=== PATIENT | female | born 1950 | race Caucasian/White ===

== ENCOUNTER 2021-07-23 01:38 | Emergency (ER) | payer MEDICARE, SELFPAY ==
[2021-07-23 01:37] VITALS: BP 147/65; PULSE 81; RESP 18; TEMP 36.9; O2SAT 99
--- NOTE | 2021-07-23 01:37 | PC.NURSE ---
PT denies chest pain, sob, or any other discomforts.
--- NOTE | 2021-07-23 01:45 | ECG_ITS ---
Measurements Intervals [place] Rate: 81 P: 41 MS: 153 QRS: 43 QRSD: 82 T: 30 QT: 302 QTc: 351 Interpretive Statements SINUS RHYTHM NONSPECIFIC T-WAVE ABNORMALITY NO PREVIOUS ECG AVAILABLE FOR COMPARISON Electronically Signed On 07-23-2021 13:43:45 CDT by Lisa Ponce M.D.
--- NOTE | 2021-07-23 01:56 | ED.RECABL ---
HPI - Recheck/Abnormal Lab/Rx General Chief Complaint: Recheck/Abnormal Lab/Rx Stated Complaint: LOW POTASSIUM Time Seen by Provider: 07/23/21 01:41 Source: patient and EMS Mode of arrival: EMS Limitations: no limitations History of Present Illness HPI narrative: Pt sent in from local [place] for potassium of 2.0 on outpatient labs. Pt has a history of hypokalemia and takes potassium supplements. Pt has no complaints. Related Data Allergies Allergy/AdvReac Type Severity Reaction Status Date / Time No Known Allergies Allergy Unverified 11/30/13 10:57 Review of Systems Review of Systems: All systems reviewed & are unremarkable except as noted in HPI and below Exam Const: General: no acute distress Orientation/consciousness: patient oriented x3 Neck: Neck: normal visual inspection Resp: Effort & Inspection: normal respiratory effort Auscultation: clear to auscultation bilaterally Cardio: Rate: regular rate Rhythm: regular rhythm GI: GI Palp: Yes Soft to palpation Auscultation: normal bowel sounds Skin: General skin exam: normal color Rashes: no rashes Neuro: General: patient oriented x3, moves all extremities and no focal motor deficits Speech: normal speech Extrem: General: normal to inspection and no clubbing, cyanosis or edema Psych: Mental Status: mental status grossly normal Thought content: Yes Normal thought content present Course Vital Signs Vital signs: Vital Signs Temperature 98.4 F 07/23/21 01:37 Pulse Rate 81 07/23/21 01:37 Respiratory Rate 18 07/23/21 01:37 Blood Pressure 147/65 H 07/23/21 01:37 Pulse Oximetry 99 07/23/21 01:37 Temperature 98.4 F 07/23/21 01:37 Pulse Rate 81 07/23/21 01:37 Respiratory Rate 18 07/23/21 01:37 Blood Pressure 147/65 H 07/23/21 01:37 Pulse Oximetry 99 07/23/21 01:37 MDM - Recheck/Abnormal Lab/Rx Lab Data Result diagrams: 07/23/21 02:20 07/23/21 02:20 Labs: Lab Results 07/23/21 07/23/21 Range/Units 02:20 02:20 WBC 8.8 (4.5-10.0) K/mm3 RBC 5.05 (4.2-5.4) M/mm3 Hgb 13.6 (12.0-15.0) g/dL Hct 43.4 (37.0-47.0) % MCV 85.9 (80-100) fl MCH 26.9 (26-34) pg MCHC 31.3 L (32-36) g/dl RDW 13.9 (11.5-14.5) % Plt Count 209 (150-375) k/mm3 MPV 11.1 H (7.4-10.4) fl Immature Gran % (Auto) 0.2 (0-0.5) % Neut % (Auto) 46.5 (45.5-73.1) % Lymph % (Auto) 42.5 (18.3-44.2) % [place] % (Auto) 7.9 (2.6-8.5) % Eos % (Auto) 2.2 (0-4.4) % Baso % (Auto) 0.7 (0.2-1.2) % Lymph # (Auto) 3.72 H (0.9-3.2) K/mm3 [place] # (Auto) 0.7 H (0.1-0.6) K/mm3 Eos # (Auto) 0.2 (0-0.3) K/mm3 Baso # (Auto) 0.1 (0.0-0.1) K/mm3 Abs Immat Gran (auto) 0.02 (0.00-0.031) K/mm3 Absolute Neuts (auto) 4.1 (1.3-6.7) K/mm3 Absolute Nucleated RBC 0.0 (0.0-0.012) K/mm3 Nucleated RBC % 0.0 (0.0-0.2) % Sodium 137 (137-145) mmol/L Potassium 3.3 L (3.4-5.0) mmol/L Chloride 101 (98-107) mmol/L Carbon Dioxide 31 H (22-30) mmol/L Anion Gap 5 L (8-16) mmol/L BUN 7 (7-17) mg/dL Creatinine 0.40 L (0.7-1.0) mg/dL Estim Creat Clear Calc 100 ml/min Estimated GFR > 60 (59 - ) Glucose 113 H (65-110) mg/dL Calcium 9.1 (8.4-10.2) mg/dL Total Bilirubin 0.7 (0.2-1.3) mg/dL AST 21 (14-36) U/L ALT 11 (4-35) U/L Alkaline Phosphatase 69 (38-126) U/L Total Protein 7.0 (6.3-8.2) g/dL Albumin 3.5 (3.5-5.1) g/dL ECG Data EKG #1: ECG completion date: 07/23/21 ECG completion time: 02:10 Ischemic changes: non-specific ST-T wave changes Interpretation: sinus rhythm rate 81, nl axis Discharge Plan Discharge Clinical Impression: Chronic hypokalemia Patient Disposition: Home, Self-Care Condition: Stable Instructions: Antibiotic Form, Hypokalemia (ED) Additional Instructions: take your meds as prescribed Follow-up/Referrals: Lorie,Milagro Bates MD [Primary Care Provider]
[2021-07-23 02:26] LABS: Basophils Absolute Auto 0.1 K/mm3 (0.0-0.1); Basophils Percent Auto 0.7 % (0.2-1.2); Eosinophils Absolute Auto 0.2 K/mm3 (0-0.3); Eosinophils Percent Auto 2.2 % (0-4.4); Hematocrit 43.4 % (37.0-47.0); Hemoglobin 13.6 g/dL (12.0-15.0); Immature Granulocyte Absolute 0.02 K/mm3 (0.00-0.031); Immature Granulocyte Percent A 0.2 % (0-0.5); Lymphocytes Absolute Auto 3.72 K/mm3 (0.9-3.2); Lymphocytes Percent Auto 42.5 % (18.3-44.2); Mean Corpuscular HGB Conc 31.3 g/dl (32-36); Mean Corpuscular Hemoglobin 26.9 pg (26-34); Mean Corpuscular Volume 85.9 fl (80-100); Mean Platelet Volume 11.1 fl (7.4-10.4); Monocytes Absolute Auto 0.7 K/mm3 (0.1-0.6); Monocytes Percent Auto 7.9 % (2.6-8.5); Neutrophils Absolute Auto 4.1 K/mm3 (1.3-6.7); Neutrophils Percent Auto 46.5 % (45.5-73.1); Platelet Count Result 209 k/mm3 (150-375); Red Blood Count 5.05 M/mm3 (4.2-5.4); Red Cell Distribution Width 13.9 % (11.5-14.5); White Blood Count 8.8 K/mm3 (4.5-10.0)
[2021-07-23 02:37] LABS: Alanine Aminotransferase 11 U/L (4-35); Albumin Level 3.5 g/dL (3.5-5.1); Alkaline Phosphatase 69 U/L (38-126); Anion Gap 5 mmol/L (8-16); Aspartate Amino Transferase 21 U/L (14-36); Bilirubin,Total 0.7 mg/dL (0.2-1.3); Blood Urea Nitrogen 7 mg/dL (7-17); Calcium 9.1 mg/dL (8.4-10.2); Carbon Dioxide 31 mmol/L (22-30); Chloride 101 mmol/L (98-107); Estimated CRCL calculation 100 ml/min; Estimated Glomerular Filt Rate > 60; Glucose 113 mg/dL (65-110); Potassium 3.3 mmol/L (3.4-5.0); Sodium 137 mmol/L (137-145)
[2021-07-23 04:33] VITALS: BP 135/73; PULSE 75; RESP 18; O2SAT 98
--- NOTE | 2021-07-23 05:14 | PC.NURSE ---
Handoff given to [facility] at [facility]
--- NOTE | 2021-07-23 05:31 | PC.NURSE ---
called [facility] at 0303 to request transport. ETA 0530 [facility] , [facility], and [facility] do not have trucks tonight. 0530 [facility] here.
[2021-07-23 05:36] VITALS: BP 128/76; PULSE 70; RESP 18; O2SAT 98
== END 2021-07-23 05:37 ==
PROVIDERS: Emergency Provider Emergency Medicine; PCP Internal Medicine
DX: E87.6 Hypokalemia (principal); R94.31 Abnormal electrocardiogram [ECG] [EKG]
CPT/HCPCS: 36415; 80053; 85025; 93005; 99283

== ENCOUNTER 2022-03-21 14:14 | Inpatient (IN) | payer OTHER, SELFPAY ==
[2022-03-21] VITALS (10 sets, daily range): BP systolic 95–131; BP diastolic 58–87; PULSE 136–156; RESP 24–37; TEMP 36.9–37.1; O2SAT 89–98; BMI 21.4
--- NOTE | ~2022-03-21 | XR_ITS ---
EXAMINATION: XR chest 1V Exam Date/Time: 03/21/2022 16:20 POULTRY CLEANER HISTORY: AMS TODAY, COVID POS 11DAYS AGO Comparison: None available. RESULT: Lines, tubes, and devices: None. Lungs and pleura: Senescent changes. Cardiomediastinal silhouette: Stable. Other: No acute osseous or upper abdominal finding. IMPRESSION: No acute cardiopulmonary process. Reviewed, dictated and finalized at location K. TRY CLEANER
--- NOTE | ~2022-03-21 | CT_ITS ---
EXAMINATION: CT brain wo con DATE: 03/21/2022 14:59 INDICATION: AMS, hx of brain cancer . TECHNIQUE: Computed tomography (CT) of the head was performed without intravenous contrast. The mA wa s adjusted according to patient size. Iterative reconstruction technique was employed. The dose-lengt h product was 605.33 mGy-cm. COMPARISON: None. FINDINGS: Irregular 4 mm approximately 70 Hounsfield unit hyperdense focus in the left parietal periventricular white matter. No acute extra-axial fluid collection. No hydrocephalus or herniation. No acute large vessel ischemic infarct. Unremarkable dural venous sinus attenuation. No acute osseous abnormality. Prior left frontal craniotomy. The aerated spaces are clear. Bifrontal white matter hypodensity, greater in the left hemisphere, with cortical thinning, presumabl y representing a combination of post surgical and post therapeutic change. Ex vacuo dilation of the l eft lateral ventricle. Moderate atrophy and mild generalized chronic white matter change. Atheroscler otic intracranial calcification. IMPRESSION: 1. No CT evidence of acute large vessel infarct. 2. 4 mm hyperdense focus in the left parietal white matter, which may represent early dystrophic calc ification, although recurrent tumor or a small focus of acute hemorrhage could appear similarly and c annot be excluded. Comparison to outside studies would be helpful if available. Reviewed, dictated and finalized at location K. IER PAYMENTS RECEIVED IMPRESSION: 1. No CT evidence of acute large vessel infarct. 2. 4 mm hyperdense focus in the left parietal white matter, which may represent early dystrophic calcification, although recurrent tumor or a small focus of a cute hemorrhage could appear similarly and cannot be excluded. Comparison to ou tside studies would be helpful if available.
--- NOTE | 2022-03-21 14:19 | ECG_ITS ---
Measurements Intervals [place] Rate: 156 P: 83 [place]: 114 QRS: 26 QRSD: 60 T: 82 QT: 270 QTc: 436 Interpretive Statements SINUS TACHYCARDIA WITH SHORT [place] INTERVAL WITH OCCASIONAL ECTOPIC PREMATURE VENTRICULAR COMPLEXES, POSSIBLE ATRIAL FLUTTER NONSPECIFIC ST & T-WAVE ABNORMALITY ABNORMAL ECG COMPARED TO ECG 07/23/2021 02:10:30 HEART RATE HAS INCREASED Electronically Signed On 03-24-2022 17:35:21 [employer]ILERHOUSE MECHANIC by Dennis Cruz M.D.
--- NOTE | 2022-03-21 14:33 | ED.GENADULT ---
HPI - General Adult General Chief complaint: Shortness of Breath/Dyspnea Stated complaint: Unresponsive Time Seen by Provider: 03/21/22 14:33 History of Present Illness HPI narrative: Patient is a 71-year-old female presenting from nursing care facility with altered mental status. Patient has a history of a brain tumor as well as diabetes. Patient was more altered today with hypoxia. Patient hypoxic to 91%. Patient not responding to any stimuli. I discussed with patient patient's sister Brigitte Brown and Patient's daughter Adeline Hinojosa ([phone]) discussed patient's wishes. Her documentation from the nursing facility notes that she is a DNR. Both her sister and daughter agree that patient would not desire CPR. However they are unsure if she will require intubation. They are discussing with each other and I will re-engage Related Data Allergies Allergy/AdvReac Type Severity Reaction Status Date / Time No Known Allergies Allergy Unverified 11/30/13 10:57 Review of Systems Review of Systems: Unable to obtain secondary to patient's altered mental status Exam Narrative: APPEARANCE: ill appearing, unresponsive EYES: EOMI HEENT: Normocephalic, atraumatic, dry mucous membranes RESPIRATORY: tachypneic without wheezing or rales . CARDIOVASCULAR:tachycardic with regular rhythm, without murmurs rubs or gallops. ABDOMINAL: Soft, nontender, nondistended, no rebound or guarding MUSCULOSKELETAl: Moves all extremities. No clubbing, cyanosis or edema. NEURO: unresponsive to noxious stimuli SKIN:: Warm, dry. No rashes lesions or abrasions PSYCHIATRIC: unable to assess , Course Vital Signs Vital signs: Vital Signs Temperature 98.8 F 03/21/22 14:20 Pulse Rate 156 H 03/21/22 14:20 Respiratory Rate 33 H 03/21/22 14:20 Blood Pressure 131/87 03/21/22 14:20 Pulse Oximetry 94 03/21/22 14:20 Oxygen Delivery Room Air 03/21/22 14:20 Temperature 98.8 F 03/21/22 14:20 Pulse Rate 140 H 03/21/22 19:30 Respiratory Rate 31 H 03/21/22 19:30 Blood Pressure 105/69 03/21/22 19:30 Pulse Oximetry 90 03/21/22 19:30 Oxygen Delivery Room Air 03/21/22 14:26 Medical Decision Making MDM Narrative Medical decision making narrative: Patient ill-appearing in respiratory distress. Facility paperwork to notes patient is a DNR. This is corroborated by family members. There is less clear whether patient is DNR. We will readdress and initiate maximal medical therapy at this time. Discussed further with Ms. Hinojosa who reports after a discussion with Ms. Brown and herself they both agree that patient would not desire a breathing tube. Will continue maximal medical therapy with no inubation or CPR. Laboratory work-up concerning for hypernatremia, anemia, CT head with possible small intracranial hemorrhage. Discussed with son reports that patient has been stating that she is ready to and has been well in her soft diet for the past year. Discussed further with his sister and requesting comfort care measures only. Believe this is appropriate and will provide this for the patient. Call [facility] critical care to arrange hospice. [facility] contacted and cannot facilitate admission to hospice until tomorrow. patient would benefit from aggressive comfort care measures, will admit to hospitalist team for comfort care. Vital Signs Vital Signs: Vital Signs Temperature 98.8 F 03/21/22 14:20 Pulse Rate 156 H 03/21/22 14:20 Respiratory Rate 33 H 03/21/22 14:20 Blood Pressure 131/87 03/21/22 14:20 Pulse Oximetry 94 03/21/22 14:20 Oxygen Delivery Room Air 03/21/22 14:20 Temperature 98.8 F 03/21/22 14:20 Pulse Rate 140 H 03/21/22 19:30 Respiratory Rate 31 H 03/21/22 19:30 Blood Pressure 105/69 03/21/22 19:30 Pulse Oximetry 90 03/21/22 19:30 Oxygen Delivery Room Air 03/21/22 14:26 Lab Data 03/21/22 14:50 03/21/22 14:50 Labs: Lab Results 03/21/22
[2022-03-21 14:57] LABS: Basophils Absolute Auto 0.1 K/mm3 (0.0-0.1); Basophils Percent Auto 0.3 % (0.2-1.2); Eosinophils Percent Auto 0.1 % (0-4.4); Hematocrit 58.2 % (37.0-47.0); Hemoglobin 17.4 g/dL (12.0-15.0); Immature Granulocyte Absolute 0.18 K/mm3 (0.00-0.031); Immature Granulocyte Percent A 0.7 % (0-0.5); Immature Platelet Fraction Pct 13.6 % (0.9-11.2); Lymphocytes Absolute Auto 0.95 K/mm3 (0.9-3.2); Lymphocytes Percent Auto 3.5 % (18.3-44.2); Mean Corpuscular HGB Conc 29.9 g/dl (32-36); Mean Corpuscular Volume 90.4 fl (80-100); Mean Platelet Volume 13.2 fl (7.4-10.4); Monocytes Absolute Auto 1.1 K/mm3 (0.1-0.6); Monocytes Percent Auto 4.2 % (2.6-8.5); Neutrophils Absolute Auto 24.8 K/mm3 (1.3-6.7); Neutrophils Percent Auto 91.2 % (45.5-73.1); Nucleated Red Blood Cells Perc 0.1 % (0.0-0.2); Platelet Count Result 205 k/mm3 (150-375); Red Blood Count 6.44 M/mm3 (4.2-5.4); Red Cell Distribution Width 16.5 % (11.5-14.5); White Blood Count 27.2 K/mm3 (4.5-10.0)
[2022-03-21] MEDS: LACTATED RINGERS 1,000 ML 999 ML IV CONT (15:02)
[2022-03-21 15:10] LABS: INR 1.3; Partial Thromboplastin Time 20.7 SECONDS (22.3-36.8); Prothrombin Time 15.4 Seconds (11.1-14.7)
[2022-03-21 15:14] LABS: Lactic Acid Reflex 4.5 mmol/L (0.7-2.0)
[2022-03-21 15:46] LABS: Alanine Aminotransferase 24 U/L (6-35); Albumin Level 3.8 g/dL (3.5-5.1); Alkaline Phosphatase 71 U/L (38-126); Anion Gap 12 mmol/L (8-16); Aspartate Amino Transferase 22 U/L (14-36); Bilirubin,Total 0.7 mg/dL (0.2-1.3); Blood Urea Nitrogen 82 mg/dL (7-17); Calcium 9.3 mg/dL (8.4-10.2); Carbon Dioxide 21 mmol/L (22-30); Chloride 130 mmol/L (98-107); Estimated CRCL calculation 31 ml/min; Estimated Glomerular Filt Rate 40; Glucose 293 mg/dL (65-110); Lipase 158 U/L (23-300); Sodium 163 mmol/L (137-145)
[2022-03-21 15:50] LABS: Influenza A QL RT-PCR Negative (Negative); Influenza B QL RT-PCR Negative (Negative); RSV RNA, RT-PCR Negative (Negative); SARS-CoV-2 RNA PCR Positive
[2022-03-21 16:08] LABS: Appearance Urine Cloudy (Clear); Bilirubin Urine 2+ (Negative); Blood Urine 2+ (Negative); Glucose Urine UA Negative (Negative); Ketones Urine Negative (Negative); Leukocyte Esterase Ur 3+ LEU/UL (Negative); Nitrate Urine Negative (Negative); Protein Urine 2+ mg/dL (Negative); Specific Grav Ur 1.015 (1.001-1.035); pH Urine 8.5 (5.0-9.0)
[2022-03-21 16:34] LABS: Add Urine Microscopic? YES; Mucus Urine Heavy /lpf; Squamous Epithelial Cell Urine Few /hpf (Few); WBC Urine >75 /hpf
[2022-03-21 16:36] LABS: Color Urine Light Yellow (Yellow)
--- NOTE | 2022-03-21 16:51 | PC.NURSE ---
Pt family at bedside, confirmed pt code status DNR with comfort measures only. After discussion with EDP family are requesting hospice care for the pt, respiratory care instructor made aware.
[2022-03-21] MEDS: MORPHINE SULFATE (*CRX) 2 MG/ML INJ IV PUSH (17:03)
[2022-03-21 17:15] LABS: Thyroid Stimulating Hormone Reflex 0.049 uIU/mL (0.465-4.68)
--- NOTE | 2022-03-21 17:22 | PCCCNOTE ---
Contacted Jackie at [facility] for possible GIP status for admission. Faxed facesheet and ED draft note. Awaiting determination.
[2022-03-21 17:52] LABS: Reflex Lactic Acid Yes or No Add Lactic
[2022-03-21 17:53] LABS: Free T4 Free Thyroxine Reflex 1.64 ng/dL (0.78-2.19)
[2022-03-21 18:25] LABS: Lactic Acid 2.6 mmol/L (0.7-2.0)
[2022-03-21 18:37] LABS: Total Triiodothyronine (T3) 0.97 NG/ML (0.97-1.69)
--- NOTE | 2022-03-21 19:30 | PC.NURSE ---
Report received from BABATUNDE Condon. Assumed care of patient at this time.
--- NOTE | 2022-03-22 01:18 | ADMGEN ---
This patient, Yashira Hanson, was admitted to Medical Room 250-01. Patient/family oriented to hospital policies and general routines including ID bracelet, bed and alarms, visiting hours, pain management, procedures, bathroom and other care routines, personal items, smoking policy, room service/diet, and visiting hours. Information on how to activate the Rapid Response Team has been discussed. Patient/Family are encouraged to report perceived risks to care and to ask questions if they do not understand what they are told or what they should do.
--- NOTE | 2022-03-22 01:43 | PM.IMHP ---
H&P: HPI History of Present Illness Date/Time: 03/22/22 01:43 Chief Complaint: Altered mental status Narrative: 71-year-old female with a past medical history of brain tumor, diabetes, hypothyroidism and chronic constipation who presented to the ER from [facility] due to altered mental status. The patient had been diagnosed with COVID 11 days ago patient has not been eating or drinking for the last few days and was unable to swallow. Patient was unresponsive and moaning but opening eyes spontaneously. Hypoxia was also noted by detention staff. In the ER CT of the brain demonstrated 4 mm hyperdense focus in the left parietal white matter which may represent early dystrophic calcification although recurrent tumor or small focus of acute hemorrhage could appear similar. CBC demonstrated marked leukocytosis, polycythemia due to hemoconcentration and electrolyte panel demonstrates severe her hypernatremia as well as acute kidney injury. She had significant lactic acidosis of 4.5. Her UA was suggestive of possible UTI. COVID PCR confirmed already known active COVID infection. The patient's vitals in the ER demonstrated marked sinus tachycardia and tachypnea. In the ER the patient received cefepime and vancomycin empirically. She also received 1 L of LR. When her labs returned her condition was discussed with the patient's family who agree that the patient is a DNR and that they did not want aggressive treatment. The patient's family subsequently chose a proceed with hospice care. However hospice organization could not arrange hospice care this evening due to the holiday. Subsequently the patient is being admitted has comfort measures until hospice arrangements can be arranged at the patient's living facility. At the time of my evaluation the patient had marked thick dark dried material in her mouth, she did not follow commands and was tachypneic but appeared otherwise in no distress. She had marked mottling of her extremities and tachycardia. Review of Systems Review of Systems: ROS unobtainable: Yes unobtainable due to medical condition and unobtainable due to mental status PMF Past Medical History Medical History (Updated 03/22/22 @ 01:56 by Marina Joshi DO) Brain neoplasm Chronic constipation Type 2 diabetes mellitus with hyperglycemia, with long-term current use of insulin Vitamin D deficiency Surgical History Surgical History (Updated 03/22/22 @ 01:54 by Marina Joshi DO) History of brain surgery Family History Family History (Updated 03/22/22 @ 01:55 by Marina Joshi DO) Other Unknown family medical history Social History Social History (Updated 03/22/22 @ 01:55 by Marina Joshi DO) Social History: The patient resides at [facility]. Smoking status: Unknown if ever smoked Alcohol intake: unknown Substance use: unknown Spiritual care concerns: No Meds Home Medications and Allergies Home Medications Medication Instructions Recorded Confirmed Type Citroma 296 ml PO DAILY PRN Constipation 03/21/22 03/21/22 History Fleet Enema 1 applic RECTAL DAILY PRN 03/21/22 03/21/22 History Constipation Milk of Magnesia 30 ml PO DAILY PRN Constipation 03/21/22 03/21/22 History acetaminophen 650 mg PO Q4-6H PRN Pain 03/21/22 03/21/22 History acetaminophen 650 mg RECTAL Q4-6H PRN Pain 03/21/22 03/21/22 History bisacodyl 1 supp RECTAL DAILY PRN 03/21/22 03/21/22 History Constipation cholecalciferol (vitamin D3) 50,000 unit PO WEEKLY 03/21/22 03/21/22 History insulin glargine 8 unit subcut BID 03/21/22 03/21/22 History insulin lispro See Protocol subcut AC 03/21/22 03/21/22 History mirtazapine 15 mg PO DAILY 03/21/22 03/21/22 History polyethylene glycol 17 g PO DAILY PRN Constipation 03/21/22 03/21/22 History potassium chloride 20 meq PO BID 03/21/22 03/21/22 History Allergies Allergy/AdvReac Type Severity Reaction Status Date / Time No Known
[2022-03-22] MEDS: MORPHINE SULFATE (*CRX) 2 MG/ML INJ IV PUSH ×2 (01:45→04:54)
--- NOTE | 2022-03-22 02:08 | PC.NURSE ---
Sepsis bullet triggered for pt r/t vital signs and lab values. Provider aware with no new orders. Pt on comfort care measures
[2022-03-22] MEDS: LORazepam INJ (*CRX) 2 MG/ML VIAL IV PUSH (02:34)
--- NOTE | 2022-03-22 04:42 | PC.NURSE ---
CONTACTED [facility] AT [phone] AT 1823 ON 03/21/2022 REGARDING THIS PT'S ACCEPTANCE TO THEIR HOSPICE SERVICE. BRONSON CALLED BACK TO SPEAK WITH THIS ED CHARGE NURSE AT 1826 ON 03/21/2022. BRONSON STATED THAT SHE DID NOT HAVE A NUMBER FOR THIS PT'S NEXT OF KIN; [facility]. BRONSON STATED THAT SHE WAS GOING TO CALL THE OTHER NUMBER SHE HAD FOR ANOTHER FAMILY MEMBER, AND SEE IF SHE COULD CONTACT [facility]. AT 1852 ON 03/21/2022 BRONSON WITH [facility] CALLED BACK AND INFORMED THIS RN THAT SHE GOT A HOLD OF [facility] AND WILL MEET WITH HIM AT 0900 ON 03/22/2022 TO MAKE ARRANGEMENTS FOR THIS PT TO TRANSITION TO THEIR HOSPICE SERVICE. DR. Heidi TURNER MADE AWARE OF THIS CONVERSATION. DR. TURNER STATES HE WILL ADMIT THIS PT HERE AT THIS TIME.
[2022-03-22 05:52] VITALS: BP 120/64; PULSE 154; RESP 24; TEMP 36.6; O2SAT 90
--- NOTE | 2022-03-22 06:32 | PC.NURSE ---
This nurse was called into room by DERREK. Entered room and observed that patient was not breathing and had no audible pulse. Notified charge nurse, Rachel, at this time.
--- NOTE | 2022-03-23 04:46 | P.DN_ITS ---
Discharge Summary Date and Time Date of : 03/22/22 Time of : 06:30 Provider Pronounced By: Nursing staff Probable Cause of Probable Cause of : COVID-19 Summary Hospital Course: Patient has history of brain tumor status post resection with chronic debility, and diabetes mellitus. She recently was diagnosed with COVID and stopped eating and drinking. She became profoundly dehydrated and unresponsive. His brought to ER for evaluation and found to be markedly dehydrated, hypernatremic with acute kidney injury with acute metabolic encephalopathy. Given her overall clinical course, chronic severe protein calorie malnutrition and declining clinical status over recent months patient's family decided to make patient comfort measures only. The patient was admitted to the hospital with anticipation of admission to hospice the following day. Unfortunately patient prior to the hospice service arriving. Additional Data Confirmation of as documented by pronouncing clinician: Pupillary Reflex, Palpable Pulses, Response to Stimuli, Heart Tones and Breath Sounds Name of Provider Notified: Hopen Time Provider Notified: 06:38 Was code activated?: No Provider Requests Autopsy: No Family Requests Autopsy: No Information Security Consultant Notified: Yes Date [facility] Notified of : 03/22/22 Time [facility] Notified of : 06:47 Advance directives: Yes
== END 2022-03-22 06:30 | disposition expired | DRG 871 ==
LOC: ANHED 21:16 → ANH2MED 22:14
PROVIDERS: Admitting Provider Internal Medicine; Emergency Provider Emergency Medicine; PCP Internal Medicine; Visit Provider Internal Medicine
DX: A41.89 Other specified sepsis (principal); U07.1 COVID-19; G93.41 Metabolic encephalopathy; E43 Unspecified severe protein-calorie malnutrition; E87.0 Hyperosmolality and hypernatremia; N17.9 Acute kidney failure, unspecified; E87.20 Acidosis, unspecified; R65.20 Severe sepsis without septic shock; R53.81 Other malaise; E86.0 Dehydration; R09.02 Hypoxemia; D75.1 Secondary polycythemia; R82.81 Pyuria; E11.65 Type 2 diabetes mellitus with hyperglycemia; D64.9 Anemia, unspecified; Z66 Do not resuscitate; E03.9 Hypothyroidism, unspecified; K59.09 Other constipation; D72.829 Elevated white blood cell count, unspecified; D49.6 Neoplasm of unspecified behavior of brain; Z68.21 Body mass index [BMI] 21.0-21.9, adult; Z79.4 Long term (current) use of insulin
CPT/HCPCS: 36415; 51701; 70450; 71045; 80053; 81001; 83605; 83690; 84439; 84443; 84480; 85025; 85055; 85610; 85730; 87040; 87077; 87086; 87088; 87186; 87637; 93005; 96365; 96367; 96375; 99285; A9270; J0692; J2060; J2270; J3370; J7120